=== PATIENT | female | born 1960 | race Caucasian/White ===

== ENCOUNTER 2018-08-27 10:15 | Emergency (ER) | payer OTHER ==
[~2018-08-27] VITALS: Ht 165.1 cm; Wt 77.1 kg
[~2018-08-27 10:15] MED LIST: ALEN70 PO; ASCO500 PO; B Complete1 EACH PO; CALCA500CH PO; CALCIT950 PO; CETI5 PO; DOCU100 PO; ESCI20 PO; ESTR.1TPW; FERR325 PO; FISH1000 PO; FLUT44OIA INH; GABA300 PO; HYDR1TAB94 PO; M.V.I.-12 10 ml10 ML PO; MULVITMIND PO; Melatonin1 MG PO; OMEPRAZOLE MAGN20 MG PO; PROG100; Synthroid/Lev0.05 MG PO; TURMERIC500 M1 PO; VITAMIN D 3 PO; Zanaflex4 M1 PO
[2018-08-27] MEDS ORDERED: HYDR1TAB94 PO (11:34)
[2018-08-29] MEDS ORDERED: BACL10 PO (13:45)
== END 2018-08-27 12:08 | disposition home or self-care (01) ==
LOC: ER 10:15
DX: S42.212A Unspecified displaced fracture of surgical neck of left humerus, initial encounter for closed fracture (principal); S42.252A Displaced fracture of greater tuberosity of left humerus, initial encounter for closed fracture; W19.XXXA Unspecified fall, initial encounter; Z79.899 Other long term (current) drug therapy
CPT/HCPCS: 29105; 73030; 96374-59; 96375-59; 99283-25; J1170; J1885

== ENCOUNTER 2018-08-30 10:53 | Day surgery (SDC) | payer OTHER ==
[~2018-08-30] VITALS: Ht 165.1 cm; Wt 78.9 kg
[~2018-08-30 10:53] MED LIST changes: +BACL10 PO
[2018-08-30] MEDS ORDERED: Flonase 0.05% N16 GM (12:05)
--- NOTE | 2018-08-30 12:10 | NUR ---
History, Chart, Medications and Allergies reviewed before start of procedure.Patient confirms NPO status and agrees with scheduled surgery. PT WITH SPLINT ON FRACTURED ARM. NO SHOWERS TAKEN OR CHOLAHEDADINE WIPE DONE. FAMILY AT BEDSIDE
--- NOTE | 2018-08-30 18:59 | NUR ---
PT TO ROOM FROM PACU. PT IS A&O X4, NAUSEATED AND PAINFUL. VSS. LR INFUSING. IS AT BEDSIDE. LEFT SHOULDER IS IN AN IMMOBILIZER, PT IS ABLE TO MOVE ALL FINGERS, CIRC WNL, GAUZE DRSG TO SHOULDER C/D/I. FAN PROVIDED FOR PT COMFORT. CALL LIGHT IN REACH.
[2018-08-31 04:25] LABS: BASOPHILS ABSOLUTE AUTO 0.01 K/mm3 (0.00-0.23); BASOPHILS PERCENT AUTO 0 % (0-2); EOSINOPHILS PERCENT AUTO 0 % (0-6); Hematocrit 30.8 % (33.0-51.0); Hemoglobin 9.9 g/dL (11.5-16.0); IMMATURE GRAN ABSOLUTE AUTO 0.04 K/mm3 (0.00-0.10); IMMATURE GRAN PERCENT AUTO 0 % (0-1); LYMPHOCYTES PERCENT AUTO 8 % (21-46); MONOCYTES ABSOLUTE AUTO 0.62 K/mm3 (0.16-1.47); MONOCYTES PERCENT AUTO 5 % (4-13); Mean Corpuscular HGB 29.3 pg (26.0-34.0); Mean Corpuscular HGB Conc 32.1 g/dL (31.5-36.5); Mean Corpuscular Volume 91 fL (80-100); Mean Platelet Volume 9.8 fL (9.1-12.4); NEUTROPHILS ABSOLUTE AUTO 11.74 K/mm3 (1.96-9.15); NEUTROPHILS PERCENT AUTO 88 % (41-73); Platelet Count 319 K/mm3 (150-400); RDW Coefficient Variation 14.2 % (11.7-14.2); RDW Standard Deviation 47.8 fL (35.1-46.3); Red Blood Cell Count 3.38 M/mm3 (3.80-5.20); White Blood Cell Count 13.41 K/mm3 (4.00-11.30)
[2018-08-31 04:42] LABS: Anion Gap 8 mmol/L (6-16); Blood Urea Nitrogen 14 mg/dL (8-24); Bun/Creatinine Ratio 18.5 (12.0-20.0); CO2, Blood 27 mmol/L (21-32); Calcium, Blood 8.2 mg/dL (8.5-10.1); Chloride, Blood 106 mmol/L (98-108); Creatinine, Blood 0.76 mg/dL (0.40-1.00); Glomerular Filtration Rate >60 (60-); Glucose, Blood 143 mg/dL (70-99); Magnesium, Blood 2.2 mg/dL (1.6-2.4); Potassium, Blood 4.8 mmol/L (3.5-5.5); Sodium, Blood 141 mmol/L (136-145)
--- NOTE | 2018-08-31 06:30 | NUR ---
SHIFT SUMMARY: PT POD #1 FOR LEFT ORIF OF SHOULDER. A&0 X4. IMMBOLIZER AND ICE IN PLACE. TANNER REG DIET. DENIES N/V. OOB TO VOID SEVERAL TIMES WITH ONE MINIMAL ASSIST. PAIN MANAGED WITH 1 NORCO Q4 AND SCHED TORADOL AND TYLENOL. PT REPORTS GOOD PAIN CONTROL. O2 SITTING AT 94 ON 3L 02. WILL WEAN DOWN.
[2018-08-31] MEDS ORDERED: ASPI325EC PO (10:22)
[2018-08-31] MEDS ORDERED: OXYC5 PO (10:23)
--- NOTE | 2018-08-31 11:30 | NUR ---
PATIENT D/C'D HOME WITH DAUGHTER AT THIS TIME. PATIENT STATES PO PAIN MED EFFECTIVE. CIRC CHECKS WNL. TOLERATING PO. NO ACUTE CHANGES OR C/O AT THIS TIME.
== END 2018-08-31 11:44 | disposition home or self-care (01) ==
LOC: ORSCMMR 10:53 → SURS 18:44 → ORSCMMR 18:45 → SURS 18:45 → ORSCMMR 18:45 → SURS 18:45 → ORSCMMR 08-31 11:44
PROVIDERS: Orthopaedic Surgery
PROC: 0PSD04Z Reposition Left Humeral Head with Internal Fixation Device, Open Approach (ICD-10-PCS; principal; 2018-08-30 13:15)
PROC: 0PUD07Z Supplement Left Humeral Head with Autologous Tissue Substitute, Open Approach (ICD-10-PCS; principal; 2018-08-30 13:15)
DX: S42.202A Unspecified fracture of upper end of left humerus, initial encounter for closed fracture (principal); E03.9 Hypothyroidism, unspecified; Z79.899 Other long term (current) drug therapy
CPT/HCPCS: 36415; 80048; 83735; 85025; 97110; 97116; 97162; 97165; 97535; C1713; J0171; J0690; J0735; J1100; J1885; J2250; J2405; J2710; J2765; J2795; J3010; J7120

== ENCOUNTER → 2022-10-18 | Outpatient (CLI) | payer BC ==
[~2022-10-18] MED LIST changes: +ASPI325EC PO; +Flonase 0.05% N16 GM; +OXYC5 PO
== END | disposition home or self-care (01) ==
LOC: LAB SHORT 15:18 → LAB 15:18
DX: N39.0 Urinary tract infection, site not specified (principal)
CPT/HCPCS: 87077; 87086; 87186

== ENCOUNTER → 2022-11-01 | Outpatient (CLI) | payer BC ==
[2022-11-01 13:13] LABS: BASOPHILS ABSOLUTE AUTO 0.07 K/mm3 (0.00-0.23); BASOPHILS PERCENT AUTO 1 % (0-2); EOSINOPHILS ABSOLUTE AUTO 0.18 K/mm3 (0.00-0.68); EOSINOPHILS PERCENT AUTO 2 % (0-6); Hematocrit 34.8 % (33.0-51.0); Hemoglobin 12.1 g/dL (11.5-16.0); IMMATURE GRAN ABSOLUTE AUTO 0.01 K/mm3 (0.00-0.10); IMMATURE GRAN PERCENT AUTO 0 % (0-1); LYMPHOCYTES ABSOLUTE AUTO 1.63 K/mm3 (0.84-5.20); LYMPHOCYTES PERCENT AUTO 18 % (21-46); MONOCYTES ABSOLUTE AUTO 0.46 K/mm3 (0.16-1.47); MONOCYTES PERCENT AUTO 5 % (4-13); Mean Corpuscular HGB Conc 34.8 g/dL (31.5-36.5); Mean Corpuscular Volume 92 fL (80-100); Mean Platelet Volume 9.1 fL (9.1-12.4); NEUTROPHILS ABSOLUTE AUTO 6.56 K/mm3 (1.96-9.15); NEUTROPHILS PERCENT AUTO 74 % (41-73); Platelet Count 400 K/mm3 (150-400); RDW Coefficient Variation 13.9 % (11.7-14.2); RDW Standard Deviation 46.1 fL (35.1-46.3); Red Blood Cell Count 3.78 M/mm3 (3.80-5.20); White Blood Cell Count 8.91 K/mm3 (4.00-11.30)
[2022-11-01 13:25] LABS: Albumin, Blood 3.5 g/dL (3.4-5.0); Bilirubin, Total 0.3 mg/dL (0.1-1.0); Bun/Creatinine Ratio 12.9 (12.0-20.0); Calcium, Blood 8.8 mg/dL (8.5-10.1); Creatinine, Blood 0.7 mg/dL (0.40-1.00); Globulin, Blood 3.6 g/dL (2.2-4.0); Potassium, Blood 4.1 mmol/L (3.5-5.5); Total Protein, Blood 7.1 g/dL (6.4-8.2)
== END | disposition home or self-care (01) ==
LOC: LAB SHORT 13:09 → LAB 13:09
PROVIDERS: Physician Assistant
DX: R60.9 Edema, unspecified (principal)
CPT/HCPCS: 80053; 82150; 85025

== ENCOUNTER → 2024-09-11 | Outpatient (CLI) | payer OTHER | END | disposition home or self-care (01) | LOC: LAB 16:12 → LAB SHORT 16:12 | DX: N39.0 Urinary tract infection, site not specified (principal); R31.9 Hematuria, unspecified; E03.9 Hypothyroidism, unspecified; E78.49 Other hyperlipidemia; R73.03 Prediabetes; R73.9 Hyperglycemia, unspecified | CPT/HCPCS: 87077; 87086; 87186 ==